=== PATIENT | female | born 1945 | race Caucasian/White ===

== ENCOUNTER 2022-10-22 15:02 | Emergency (ER) | payer MEDICARE ==
[2022-10-22 15:13] VITALS: TEMP 98.2
[2022-10-22] MEDS ORDERED: DIPH,PERTUS(ACELL)TETVAC-LF 0.5 ML VIAL IM ONE (15:46)
--- NOTE | 2022-10-22 15:53 | ED ---
General Adult HPI - General Chief complaint: Fall Stated complaint: Fall Time Seen by Provider: 10/22/22 15:16 Source: patient, EMS, RN notes reviewed, old records reviewed Mode of arrival: EMS Limitations: no limitations - History of Present Illness Initial comments: Patient is a 76-year-old female with past medical history remarkable for hypertension, hyperlipidemia on aspirin presents following a fall. States she is being chased by a bumble bee when she turned around and tried to escape, tripping over her legs and landing on the right side of her body. Specifically landing on her right elbow, right knee, right side of her face and nose. This is where she is having pain. His abrasions over her face and nose. Unknown last tetanus. Denies loss consciousness. Denies chest pain, abdominal pain, nausea, vomiting. Denies any back pain. Was ambulatory at the scene afterwards. Presents for further evaluation of this time. 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 - Related Data Allergies Allergy/AdvReac Type Severity Reaction Status Date / Time lincomycin [From Lincocin] Allergy Abdominal Verified 10/22/22 15:14 Pain Penicillins AdvReac Itching Verified 10/22/22 15:13 Review of Systems ROS Statement: Those systems with pertinent positive or pertinent negative responses have been documented in the HPI. Review of Systems: CONST: Denies fever EYES: Denies blurry vision ENT: Denies nasal congestion C/V: Denies Chest pain RESP: Denies shortness of breath GI: Denies abdominal pain : Denies dysuria SKIN: Denies rash. MSK: Endorses joint pain, face pain. NEURO: Denies headache ROS Other: All systems not noted in ROS Statement are negative. Past Medical History Past Medical History: Hyperlipidemia, Hypertension History of Any Multi-Drug Resistant Organisms: None Reported Past Surgical History: Adenoidectomy, Cholecystectomy, Orthopedic Surgery Additional Past Surgical History / Comment(s): 1ft of colon removed Smoking Status: Never smoker Past Alcohol Use History: Rare Past Drug Use History: None Reported General Exam - General Exam Comments Initial Comments: General: Appears in no acute distress. HEAD: Negative Mcintosh sign. Negative raccoon eyes. Small superficial abrasions located over the right side of her face slightly on the cheek but mostly in the nasal bridge. Tenderness at those sites. EYES: Right pupil is 2 mm left pupil is 3 mm. This is baseline for the patient. Anisocoria is chronic. EOMI conjunctivae otherwise normal. ENT: Hearing grossly intact, normal oropharynx. RESPIRATORY: Clear breath sounds bilaterally. No wheezes, rales, or rhonchi. C/V: Regular rate and rhythm. S1 and S2 auscultated, no edema, peripheral pulses 2+ and intact throughout ABD: Abd is soft, nontender, nondistended EXT: Tetanus palpation over the posterior right elbow, anterior right knee. Also tenderness of the right side of the face. Minimal C-spine tenderness. No midline thoracic or lumbar spine tenderness. Pelvis is stable. SKIN: Refer she'll abrasions located across the face, nasal bridge. NEURO: Alert and oriented x 4. Cranial nerves II-XII intact. No focal sensory or strength deficits. GCS of 15. Baseline anisocoria. Limitations: no limitations Course Vital Signs 10/22/22 10/22/22 10/22/22 15:06 16:42 17:25 Temperature 98.2 F Pulse Rate 63 61 Respiratory 18 16 Rate Blood Pressure 207/70 197/70 193/70 O2 Sat by Pulse 95 98 Oximetry 10/22/22 18:30 Temperature Pulse Rate Respiratory Rate Blood Pressure 156/70 O2 Sat by Pulse Oximetry Medical Decision Making - Medical Decision Making Was pt. sent in by a medical professional or institution (, PA, ETHERNET NETWORK ARCHITECT, urgent care, hospital, or halfway...) When possible be specific @ -No Did you speak to anyone other than the patient for history (EMS, parent, family, police, friend...)? What history was obtained from this source @ -No Did you review nursing and triage notes (agree or disagree)? Why? @ -I reviewed and agree with nursing and triage notes Were old charts reviewed (outside hosp., previous admission, EMS record, old EKG, old radiological studies, urgent care reports/EKG's, halfway records)? Report findings @ -No old charts were reviewed Differential Diagnosis (chest pain, altered mental status, abdominal pain women, abdominal pain men, vaginal bleeding, weakness, fever, dyspnea, syncope, headache, dizziness, GI bleed, back pain, seizure, CVA, palpatations, mental health, musculoskeletal)? @ -Muscle sprain, muscle strain, abrasions, intracranial injury, bone fracture, bone subluxation. This list is not all-inclusive. EKG interpreted by me (3pts min.). @ -None done X-rays interpreted by me (1pt min.). @ -Patient's chest, elbow, pelvis, knee x-rays unremarkable for any obvious acute injury. CT interpreted by me (1pt min.). @ -CT head, C-spine shows no acute intracranial process or treatment continue the cervical spine. Chronic findings only per radiology. A CT shows possible subtle fracture of the maxillary spine seen by radiology. No other obvious traumatic injury. U/S interpreted by me (1pt. min.). @ -None done What testing was considered but not performed or refused? (CT, X-rays, U/S, labs)? Why? @ -None What meds were considered but not given or refused? Why? @ -None Did you discuss the management of the patient with other professionals (professionals i.e. , PA, ETHERNET NETWORK ARCHITECT, lab, RT, psych nurse, vp digital marketing social media and crm, hat copyist, teacher, chief digital media officer, case therapist)? Give summary @ -No Was smoking cessation discussed for >3mins.? @ -No Was critical care preformed (if so, how long)? @ -No Were there social determinants of health that impacted care today? How? (Homelessness, low income, unemployed, alcoholism, drug addiction, transportation, low edu. Level, literacy, decrease access to med. care, fdc, rehab)? @ -No Was there de-escalation of care discussed even if they declined (Discuss DNR or withdrawal of care, Hospice)? DNR status @ -No What co-morbidities impacted this encounter? (DM, HTN, Smoking, COPD, CAD, Cancer, CVA, ARF, Chemo, Hep., AIDS, mental health diagnosis, sleep apnea, morbid obesity)? @ -None Was patient admitted / discharged? Hospital course, mention meds given and route, prescriptions, significant lab abnormalities, going to OR and other pertinent info. @ -Based on the patient's presentation and physical exam, presents following a mechanical fall. No loss of consciousness. Due to her age we will obtain CT imaging of the brain, face, C-spine as well as plain film x-rays of the pelvis, right elbow, right knee. She was in agreement this plan. Declines analgesic medications at this time. Tetanus will be updated. Vital signs are within acceptable limits. Patient's imaging returned remarkable for possible acute maxillary spine fracture that is nondisplaced. Patient has no point tenderness at this site. Remainder the imaging unremarkable. On reevaluation, patient remains hypertensive. I did update her on the results of her imaging. She does states she did not take her hypertensive medication last night and therefore we will provide her with a dose of that as well as Motrin at this time at her request. We will monitor for improvement in blood pressure. She was in agreement this plan. Blood pressure has improved. She feels improved. She'll be discharged, this time. Strict return precautions discussed. She was in agreement this plan. I instructed the patient to follow up with their PCP in the next 1-3 days. I provided contact information for follow up with ENT. I explained that the patient should return to the emergency department if they experience any worsening symptoms. Strict return precautions were discussed with the patient. The patient expressed understanding of these instructions. I answered all questions that the patient had. The patient was discharged home in good condition with their prescriptions and follow up information. Undiagnosed new problem with uncertain prognosis? @ -No Drug Therapy requiring intensive monitoring for toxicity (Heparin, Nitro, Insulin, Cardizem)? @ -No Were any procedures done? @ -No Diagnosis/symptom? @ -Mechanical fall, abrasion, possible maxillary spine fracture nondisplaced Acute, or Chronic, or Acute on Chronic? @ -Acute Uncomplicated (without systemic symptoms) or Complicated (systemic symptoms)? @ -Uncomplicated Side effects of treatment? @ -none Exacerbation, Progression, or Severe Exacerbation] @ -no Poses a threat to life or bodily function? @ -no Diagnosis/symptom? @ -Hypertension Acute, or Chronic, or Acute on Chronic? @ -Acute on chronic Uncomplicated (without systemic symptoms) or Complicated (systemic symptoms)? @ -Uncomplicated Side effects of treatment? @ -none Exacerbation, Progression, or Severe Exacerbation] @ -no Poses a threat to life or bodily function? @ -no Disposition Clinical Impression: Fall, Abrasion, Hypertension Narrative: Possible nondisplaced fracture of the maxillary spine. Disposition: HOME SELF-CARE Condition: Stable Instructions (If sedation given, give patient instructions): Fall Prevention for Older Adults (ED) Additional Instructions: You have a possible nondisplaced fracture of the maxillary spine. Is patient prescribed a controlled substance at d/c from ED?: No Referrals: Nonstaff,Physician [Primary Care Provider] - 1-2 days Jose Padron DO [Doctor of Osteopathic Medicine] - 1-2 days Time of Disposition: 18:35
--- NOTE | 2022-10-22 16:20 | XR ---
EXAMINATION TYPE: XR knee complete RT DATE OF EXAM: 10/22/2022 4:15 PM INDICATION: Patient age:Female; 76 years old; Reason for study: fall, pain; PHH. COMPARISON: None. TECHNIQUE: The Right knee(s) was examined in 3 projections. Frontal, crosstable lateral and oblique. FINDINGS: No acute fracture or dislocation. 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 Hardware appears intact without surrounding angelica prosthetic lucency to suggest loosening. No soft tissue edema or joint effusion identified. IMPRESSION: 1. No acute osseous pathology. 2. Postsurgical changes from right total knee arthroplasty. Hardware appears intact.
--- NOTE | 2022-10-22 16:21 | XR ---
EXAMINATION TYPE: XR pelvis AP view DATE OF EXAM: 10/22/2022 4:16 PM INDICATION: Patient age:Female; 76 years old; Reason for study: fall, pain; PHH. COMPARISON: None TECHNIQUE: The pelvis was examined in a single projection. FINDINGS: There is no evidence of fracture or dislocation. There is no soft tissue abnormality. No a bnormal calcifications are present. Multilevel degenerative changes of the lower spine. Osteoarthriti c changes of both hips with right greater than left. Degenerative changes of the pubic symphysis. IMPRESSION: 1. No acute osseous pathology. 2. Mild osteoarthritic change of the left hip with moderate osteoarthritic change of the right hip.
--- NOTE | 2022-10-22 16:23 | CT ---
EXAMINATION TYPE: CT brain clement bartholomew DATE OF EXAM: 10/22/2022 COMPARISON: None HISTORY: 76-year-old female pain after fall. lac on nose. CT DLP: 1164.7 (combined) mGycm Automated exposure control for dose reduction was used. Technique: Examination of the head was done in axial plane without intravenous contrast. Coronal and sagittal reconstructions performed. CT of the cervical spine was obtained in axial plane without intravenous injection of contrast mater ial. Coronal and sagittal reformatted images were obtained from the axial views for evaluation of f ractures, spinal alignment and canal. FINDINGS: Head: There is no evidence of acute intracranial hemorrhage, acute ischemic changes, mass, mass-effect, or extra-axial fluid collection. There is no effacement of cerebral sulci or basal subarachnoid cister ns. There is no midline shift. Adams-white matter distinction is preserved. Mild periventricular white matter hypodensity. Mild subcortical white matter hypodensity lateral righ t frontal lobe. Mild central cerebral volume loss with slight ventricular prominence. Mastoid air cells are well pneumatized. Facial bones reported separately. Cervical spine: No craniocervical junction abnormality, predental space widening, or prevertebral soft tissue swellin g. Marked degenerative change along the left lateral C1-C2 lateral mass articulation. Degenerative grade 1 anterolisthesis above the patient's C4-C6 ACDF. Of note, the patient's right sided C6 ACDF screw appears to violate the inferior endplate and extendi ng into the C6-C7 disc interspace. Moderate to advanced degenerative disc disease here. Degenerative grade 1 anterolisthesis also present at C7-T1. Extensive metal artifact from the patient's interbody device. No acute fracture identified. Multilevel facet and uncovertebral joint arthropathy is present. Sagittal and coronal reformatted images confirm above findings. COMBINED IMPRESSION: 1. Moderate patchy burden of chronic small vessel ischemic disease. Mild central cerebral atrophy. No acute intracranial abnormality seen. 2. Status post C4-C6 ACDF. Of note, there is chronic hardware complication with the right-sided C6 AC DF screw violating the inferior C6 endplate and extending into the C6-C7 disc interspace. Moderate to advanced degenerative disc disease here. 3. No acute fracture identified of the cervical spine allowing for the metal artifacts. Moderate mult ilevel spondylotic change. 4. Facial bones reported separately.
--- NOTE | 2022-10-22 16:23 | XR ---
EXAMINATION TYPE: XR chest 1V DATE OF EXAM: 10/22/2022 4:18 PM COMPARISON: None TECHNIQUE: XR chest 1V Frontal view of the chest. CLINICAL INDICATION:Female, 76 years old with history of fall, pain; FINDINGS: Lungs/Pleura: There is flattening of the diaphragm with increased lucency of the lungs. No evidence o f pneumothorax, pleural effusion or focal consolidation. Chronic senescent parenchymal change. Pulmonary vascularity: Unremarkable. Heart/mediastinum: Cardiomediastinal silhouette is enlarged. Musculoskeletal: No acute osseous pathology. Cervical fusion changes demonstrated. Other findings: Suggestive moderate hilar hernia IMPRESSION: 1. No acute cardiopulmonary disease/process. 2. COPD changes. 3. Cardiomegaly. 4. Suggested moderate size hiatal hernia.
--- NOTE | 2022-10-22 16:24 | XR ---
EXAMINATION TYPE: XR elbow complete RT DATE OF EXAM: 10/22/2022 4:14 PM INDICATION: Patient age:Female; 76 years old; Reason for study: fall, pain; PHH. COMPARISON: None TECHNIQUE: The right elbow was examined in AP, lateral, and oblique projections. FINDINGS: No evidence of any acute osseous pathology, joint dislocation, or soft tissue swelling is n oted. Degenerative changes identified. No evidence of joint effusion is present. IMPRESSION: No evidence of acute fracture.
--- NOTE | 2022-10-22 16:26 | CT ---
EXAMINATION TYPE: CT facial bones wo con DATE OF EXAM: 10/22/2022 COMPARISON: None HISTORY: 76-year-old female pain after fall. Laceration on nose. TECHNIQUE: Contiguous axial scanning of the facial bones without IV contrast. Coronal and sagittal re constructions performed. CT DLP: 1164.7 (combined) mGycm Automated exposure control for dose reduction was used. FINDINGS: Leftward nasal septal deviation. No depressed or angulated nasal bone fracture seen. There is some irregularity at the level of the maxillary spine. A subtle nondisplaced fracture of the maxillary spine is not excluded. Correlate for any point tenderness here. Refer to sagittal image 41 and axial image 38. There may be some overlying soft tissue swelling as well. Paranasal sinuses are well pneumatized. Orbits and globes appear intact. The mandible, TMJs, pterygoid plates, zygomatic arches are intact. No acute facial bone fracture seen. The patient is partially dentulous. Scattered dental caries are present, particularly on the left. IMPRESSION: 1. POSSIBLE SUBTLE FRACTURE OF THE MAXILLARY SPINE (REFER TO SAGITTAL IMAGE 41 AND AXIAL IMAGE 38). C ORRELATE FOR POINT TENDERNESS HERE. 2. OTHERWISE, NO ACUTE FACIAL BONE FRACTURE SEEN.
[2022-10-22] MEDS ORDERED: IBUPROFEN 600 MG TAB PO STA (17:06)
[2022-10-22] MEDS ORDERED: DILTIAZEM CD 240 MG CAP.ER.24H PO STA (17:07)
[2022-10-22 18:31] VITALS: BP 156/70
[2022-10-22 19:16] VITALS: PULSE 62; RESP 18
== END 2022-10-22 19:16 | disposition home or self-care (01) ==
LOC: EC 15:02
DX: S00.81XA Abrasion of other part of head, initial encounter (principal); I10 Essential (primary) hypertension; Z88.0 Allergy status to penicillin; Z88.8 Allergy status to other drugs, medicaments and biological substances; Z23 Encounter for immunization; W01.0XXA Fall on same level from slipping, tripping and stumbling without subsequent striking against object, initial encounter
CPT/HCPCS: 70450; 70486; 71045; 72125; 72170; 90471; 90715; 99285